=== PATIENT | male | born 1965 ===

== ENCOUNTER 2023-10-17 11:15 | Inpatient (IN) | payer OTHER ==
[~2023-10-17] VITALS: Ht 182.9 cm; Wt 158.8 kg
[2023-10-17] MEDS ORDERED: ATACAND HCT 321 EACH PO (12:10)
[2023-10-17 12:11] VITALS: BP 130/91
[2023-10-31] MEDS ORDERED: METFORMIN HCL1000 M2 PO (14:09)
[2023-11-06] MEDS ORDERED: BUPIVACAINE HCL/MPF 0.5% 30ML VIAL ONE (07:43)
[2023-11-06] MEDS ORDERED: LIDOCAINE HCL 1%/EPINEPHRINE 20ML VIAL IJ ONE (07:43)
[2023-11-06] MEDS ORDERED: CEFOXITIN SODIUM 2,000 MG VIAL IV ONE (07:44)
[2023-11-06] MEDS ORDERED: SUGAMMADEX SODIUM 200 MG/2 ML VIAL IV ONE (09:13)
[2023-11-06] MEDS ORDERED: ENOXAPARIN SODIUM 40 MG/0.4 ML SYRINGE SUBCUTANEO NR (13:00)
[2023-11-06] MEDS ORDERED: MORPHINE SULFATE 4 MG/ML VIAL IV SCH (13:00)
[2023-11-06] MEDS ORDERED: ENOXAPARIN SODIUM 40 MG/0.4 ML SYRINGE SUBCUTANEO ONE (13:24)
[2023-11-06] MEDS ORDERED: DEXTROSE 50 % IN WATER 0.5 G/ML DISP.SYRIN IV PRN (14:45)
[2023-11-06] MEDS ORDERED: INSULIN LISPRO 1,000 UNIT/10 ML UNITS SUBCUTANEO PRN (14:45)
[2023-11-06] MEDS ORDERED: FAMOTIDINE/PF 20 MG/2 ML VIAL ONE (15:12)
[2023-11-06] MEDS ORDERED: INSULIN LISPRO 1,000 UNIT/10 ML UNITS SUBCUTANEO ONE (16:43)
[2023-11-06] MEDS ORDERED: FAMOTIDINE/PF 20 MG/2 ML VIAL IV SCH (17:00)
[2023-11-07 00:24] VITALS: BP 136/85; O2SAT 92
[2023-11-07 08:43] VITALS: BP 123/76; O2SAT 96
[2023-11-07] MEDS ORDERED: CANDESARTAN CILEXETIL 32 MG TABLET PO SCH (09:00)
[2023-11-07] MEDS ORDERED: ENOXAPARIN SODIUM 40 MG/0.4 ML SYRINGE SUBCUTANEO SCH (09:00)
[2023-11-07 16:46] VITALS: BP 145/78; O2SAT 98
[2023-11-07] MEDS ORDERED: SIMETHICONE 125 MG CAPSULE PO SCH (20:59)
[2023-11-07] MEDS ORDERED: LORazepam 1 MG TABLET PO SCH (21:00)
[2023-11-08 00:06] VITALS: BP 116/78; O2SAT 96
[2023-11-08 05:33] LABS: HEMATOCRIT 48.4 % (39.0-48.0); HEMOGLOBIN 16.1 g/dL (13-16.00); MEAN CELL VOLUME 92.8 fL (80.0-100.00); MEAN CORPUSCULAR HEMOGLOBIN 30.8 pg (27.00-32.0); MEAN CORPUSCULAR HGB CONC 33.2 g/dl (32.0-36.0); PLATELET COUNT 235 K/uL (150-450); RED BLOOD COUNT 5.21 M/uL (4.00-6.00); RED CELL DISTRIBUTION WIDTH 13.9 % (11.5-14.5)
[2023-11-08 06:36] LABS: ALBUMIN 2.7 gm/dL (3.4-5.0); BILIRUBIN TOTAL 0.97 mg/dL (0.3-1.2); CALCIUM 8.7 mg/dL (8.5-10.1); CREATININE SERUM 0.9 mg/dL (0.70-1.30); GFR 86.07; POTASSIUM 4.12 mEq/L (3.5-5.1); TOTAL PROTEIN 6.7 gm/dL (6.4-8.2)
[2023-11-08 08:00] VITALS: BP 133/69; O2SAT 93
[2023-11-08] MEDS ORDERED: METOCLOPRAMIDE HCL 5 MG/ML VIAL IV SCH (08:00)
[2023-11-08] MEDS ORDERED: KETOROLAC TROMETHAMINE 30 MG VIAL IM SCH (09:00)
[2023-11-08 16:00] VITALS: BP 132/82; O2SAT 96
[2023-11-08 23:51] VITALS: BP 151/83; O2SAT 100
[2023-11-08 23:52] VITALS: BP 131/79; O2SAT 98
[2023-11-09 08:36] VITALS: BP 181/80; O2SAT 94
[2023-11-09 16:56] VITALS: BP 148/76; O2SAT 97
[2023-11-10 00:04] VITALS: BP 97/68; O2SAT 95
[2023-11-10 08:05] VITALS: BP 105/69; O2SAT 98
[2023-11-10 16:30] VITALS: BP 160/90; O2SAT 96
== END 2023-11-10 16:40 | disposition home or self-care (01) | DRG 331 ==
LOC: O/R 11-06 05:31 → SURH 11-06 07:00 → SURG 11-06 13:30
PROVIDERS: Internal Medicine; ADMIT Surgery; ATTEND Surgery
PROC: 0DTF4ZZ Resection of Right Large Intestine, Percutaneous Endoscopic Approach (ICD-10-PCS; principal; 2023-11-06 07:00)
DX: D12.2 Benign neoplasm of ascending colon (principal); D49.0 Neoplasm of unspecified behavior of digestive system; K63.5 Polyp of colon; R59.0 Localized enlarged lymph nodes